=== PATIENT | male | born 1985 ===

== ENCOUNTER 2021-03-28 19:40 | Emergency (ER) | payer SELFPAY ==
[~2021-03-28] VITALS: Ht 185.4 cm; Wt 105.0 kg
--- NOTE | 2021-03-28 19:54 | NUR ---
EKG done, [facility] remains at bedside pt handcuffed to mari.
[2021-03-28 20:45] LABS: MEAN CORPUSCULAR HEMOGLOBIN 32.5 pg (27.5-34.5); MEAN CORPUSCULAR HGB CONC 34.8 g/dL (33.2-36.2); NEUTROPHILS % (AUTO) 64 % (42-75); PLATELET COUNT 358 x10^3/uL (130-400); RED BLOOD COUNT 4.51 x10^6/uL (4.38-5.82); RED CELL DISTRIBUTION WIDTH 11.8 % (9.4-14.8)
[2021-03-28 20:46] LABS: BASOPHILS % (AUTO) 0 % (0-1); EOSINOPHILS % (AUTO) 1 % (1-7); LYMPHOCYTES % (AUTO) 25 % (22-44); MONOCYTES % (AUTO) 9 % (2-9)
[2021-03-28 20:57] LABS: ANION GAP 4 mmol/L (5-15); CALCIUM 9.2 mg/dL (8.5-10.1); CHLORIDE 107 mmol/L (98-107); CREATININE 1.17 mg/dL (0.7-1.3)
[2021-03-28 21:05] VITALS: BP 147/98
== END 2021-03-28 21:22 | disposition home or self-care (01) ==
LOC: ED 20:10
DX: I10 Essential (primary) hypertension (principal); R94.31 Abnormal electrocardiogram [ECG] [EKG]
CPT/HCPCS: 36415; 80048; 85025; 93005; 99284